=== PATIENT | male | born 1995 | race Caucasian/White ===

== ENCOUNTER 2018-10-20 09:46 | Emergency (ER) | payer SELFPAY ==
--- NOTE | 2018-10-20 09:54 | NUR.NOTE ---
for the past 2 weeks pt has been experiencing pain in his lower left ribs. pt states that the pain is 5/10 at worst and it interment some times not present for a whole day some times multiple days pt believes that the pain is brought about by spicy food. pt notes that once the pain is present
--- NOTE | 2018-10-20 09:56 | W.ED.GENAD ---
Discharge Plan Disposition Patient Disposition: HOME Condition: Good Discharge Details Chief Complaint: Abd Prob Clinical Impression: Gastritis Primary Care Provider: Cynthia Cordon ED Provider: Shila Biggs Home Meds and New Rx's Prescriptions: New omeprazole 40 mg capsule,delayed release(DR/EC) 40 mg PO DAILY Qty: 14 RF: 0 Continued cephalexin 500 MG capsule 500 mg PO QID 7 Days RF: 0 Discharge Instructions Instructions: Gastritis (ED) Additional Instructions: Encourage hydration. Try to avoid foods that cause increased pain. Follow up with your primary care physician next week for reevaluation. Even if symptoms are improving, take omeprazole as prescribed. If you develop fevers, chills, increased pain, are unable to stay hydrated or develop other new/worsening symptoms please seek care urgently once again. Referrals: Cynthia Cordon [Primary Care Provider] - Discharge Data Discharge Date/Time-TO BE ENTERED AT DEPARTURE: 10/20/18 11:55 Medical Decision Making <KAYLEIGH Lewis - Last Filed: 10/20/18 13:10> Patient is a 23 year old male, accompanied by father, with c/c of intermittent abdominal pain over the past 3 weeks. Reports that this comes on after eating. He had thought this was associated with spicy food but also sounds to be worse with fatty foods. He is currently asymptomatic but states that he had pain much longer than he had on previous episodes. States that he was ate kateryna salad for dinner last night and shortly afterward develops epigastric and LUQ pain. Dnies N/V/D. No fevers/chills. No change in appetite. No previous abdominal surgeries. States that when symptoms first began he used omeprazole, this was helpful with symptom management but he then stopped the medication and symptoms returned. On exam, patient has large benign abdomen. He is nontoxic, no current discomfort. Given locationi of pain and that this is worse after eating fatty foods, will obtain US of abdomen to evalaute for gallbladder pathology. Will obtain baseline labs. With ihs history, most consistent with GERD or ulcer. US reviewed by software test technician, no acute abnormality noted. Labs reviewed, reassuring for no acute/emergent abdominal process. No leukocytosis, no electrolyte abnormalities. Lipase WNL. Discussed this with the patient. He has been taking large amount of Ibuprofen, discussed that this maybe worsening his symptoms. Advised he stop this, will start on 40mg Omeprazole QD. Advised f/u with PCP. Patient has PCP but has not been seen for first appointment, have asked critical care nurse practitioner to help ensure prompt follow up for his abdominal pain. He was given strict return precautions. All questions and concerns were addressed, he is in agreement with this plan. <Farhan De La O DO - Last Filed: 12/16/18 15:09> EKG 11: 29 Rate 91, intervals normal, sinus rhythm, nonspecific T wave abnormality with inversions in lead III and aVF, Q waves in lead III and aVF. No significant ST elevations. No prior EKG for comparison. HPI <KAYLEIGH Lewis - Last Filed: 10/20/18 13:10> General Mode of arrival: ambulatory. Date/Time Provider Initiated Documentation: 10/20/18 09:55. Limitations to Documentation: no limitations. Information obtained by: patient, family (accompanied by father) and RN notes reviewed. History of Present Illness 23 year old M presents to the emergency department with the chief complaint of epigastric pain after eating, described as moderate, Quality is described as burning and aching, and is localized to the abdomen. Patient reports no radiation. Patient started experiencing this week(s) (3) and it has been intermittent and now resolved. Medication improves symptom(s), (omeprazole) Eating worsens symptoms . Patient notes denies chest pain, cough, diaphoresis, fever/chills, headaches, loss of appetite, nausea/vomiting, rash, shortness of breath and weakness. Patient did receive the following treatments prior to arrival, other (omeprazole) Related Data Home Medications Medication Instructions Recorded Confirmed cephalexin 500 mg PO QID 7 Days cap 11/29/17 omeprazole 40 mg PO DAILY #14 cap 10/20/18 Previous Rx's Medication Instructions Recorded cephalexin 500 mg PO QID 7 Days cap 11/29/17 omeprazole 40 mg PO DAILY #14 cap 10/20/18 Allergies Allergy/AdvReac Type Severity Reaction Status Date / Time No Known Allergies Allergy Unverified 11/29/17 13:44 Review of Systems <KAYLEIGH Lewis - Last Filed: 10/20/18 13:10> Constitutional Reports as per HPI, Denies chills, Denies fatigue, Denies fever(s) and Denies headache(s) ENT Denies headache(s) Cardiovascular Reports as per HPI, Denies chest pain and Denies dyspnea Respiratory Reports as per HPI, Denies cough and Denies dyspnea Gastrointestinal Reports as per HPI Genitourinary Denies system reviewed and no additional complaints, except as docu (patient denies any change in urinary habits), Denies scrotal swelling and Denies testicular pain Musculoskeletal Reports as per HPI and Denies back pain Integumentary/Breasts Reports as per HPI and Denies rash Neurologic Reports as per HPI and Denies headache(s) Endocrine Denies fatigue PFSH <KAYLEIGH Lewis - Last Filed: 10/20/18 13:10> Social History Smoking/Tobacco Use Status: Never Alcohol Intake: never Substance use type: does not use Do you feel safe at home: Yes Do you feel safe in your relationship?: Yes Exam <KAYLEIGH Lewis - Last Filed: 10/20/18 13:10> Const General: cooperative, healthy appearing, comfortable, no acute distress and well developed Nutritional Appearance: well nourished and overweight Orientation: alert and awake HENMT Head: normal to inspection Mouth: moist mucous membranes Resp Effort & Inspection: normal respiratory effort, able to speak in complete sentences and no respiratory distress Auscultation: clear to auscultation bilaterally, no rales, no rhonchi and no wheezes Cardio Rate: regular rate Rhythm: regular rhythm Heart Sounds: S1 normal and S2 normal GI Inspection: normal to inspection, no visible herniation and No visible peristalsis Palpation: soft, no hepatosplenomegaly, no aortic enlargement, not firm, no guarding, no hernias, no masses, not rigid, nontender and No ascites Percussion: normal to percussion Auscultation: normal bowel sounds Back/Spine/Pelvis Back: no CVA tenderness Skin General skin exam: no rashes or lesions noted Trauma: no lacerations or abrasions Neuro General: alert and awake Cognition: normal cognition Speech: speech normal Gait: normal gait Psych Appearance: grossly normal and well kempt Mental Status: mental status grossly normal Speech and Movement: speech and movement normal
[2018-10-20 09:58] VITALS: BP 125/60; PULSE 77; RESP 16; TEMP 36.8; O2SAT 98
--- NOTE | 2018-10-20 10:08 | DI.US_ITS ---
SYMPTOMS/DIAGNOSIS: EPIGASTRIC PAIN AFTER EATING FATTY FOODS, ? GB DISEASE ABDOMINAL ULTRASOUND: Routine examination was performed. The aorta and IVC are unremarkable. The liver is normal in size. No hepatic mass is seen. The gallbladder is negative. There is a negative sonographic Cordova's sign. No biliary ductal dilatation is present. The pancreas, spleen and kidneys are unremarkable. The left upper quadrant was evaluated sonographically and is unremarkable. IMPRESSION: Negative abdominal ultrasound. The findings were discussed with Shila Biggs of the emergency department on the date of the examination.
[2018-10-20 11:05] LABS: Abs Immature Grans 0.01 k/cumm (0.0-0.09); Absolute Basophil Count 0.01 k/cumm (0.0-0.2); Absolute Eosinophil Count 0.08 k/cumm (0.0-0.7); Absolute Lymphocyte Count 1.51 k/cumm (1.2-3.4); Absolute Monocyte Count 0.58 k/cumm (0.11-0.7); Absolute Neutrophil Count 3.37 k/cumm (1.2-6.7); Basophils % 0.2; Eosinophils % 1.4; HCT 45.1 % (40.0-50.0); HGB 15.5 g/dL (13.5-17.5); Immature Grans % 0.2; Lymphocytes % 27.2; Mean Corp. HGB Concentration 34.4 g/dL (32.0-36.0); Mean Corpuscular Hemoglobin 30.5 pg (27.0-33.0); Mean Corpuscular Volume 88.6 fL (80-95); Mean Platelet Volume 9.4 fL (8.0-11.0); Monocytes % 10.4; Neutrophils % 60.6; Platelet Count 260 x1000/uL (130-400); RBC 5.09 m/cumm (4.50-6.00); White Blood Cell Count 5.56 k/cumm (4.4-10.8)
[2018-10-20 11:26] LABS: ALT 36 U/L (12-78); AST 18 U/L (15-37); Albumin 4.1 g/dL (3.4-5.0); Alkaline Phosphatase 51 U/L (46-116); Anion Gap 9.2 mmol/L (3-11); BUN 14 mg/dL (7-18); Bilirubin, Total 0.5 mg/dL (0.2-1.0); CO2 26.8 mmol/L (21.0-32.0); CREATININE 1.07 mg/dL (0.70-1.30); Calcium 9.4 mg/dL (8.5-10.1); Chloride 102 mmol/L (98-107); Glucose 107 mg/dL (70-100); Lipase 130 U/L (73-393); Potassium 3.9 mmol/L (3.5-5.1); Sodium 138 mmol/L (136-145); Total Protein 7.8 g/dL (6.4-8.2)
[2018-10-20 11:31] LABS: Troponin I < 0.02 ng/mL (0.00-0.06)
[2018-10-20 17:51] VITALS: BP 125/60; PULSE 77; RESP 16; TEMP 36.8; O2SAT 98
--- NOTE | 2018-10-21 11:08 | CMPROGNOTE_ITS ---
Care Management Progress Note 10/21-Shila VICTOR requested assistance with a PCP ([facility]) f/u in two weeks for abd pain. Referral faxed to [facility].
== END 2018-10-20 11:55 | disposition home or self-care (01) ==
PROVIDERS: Emergency Provider Physician Assistant; PCP Nurse Practitioner Family
DX: K29.00 Acute gastritis without bleeding (principal); R10.13 Epigastric pain
CPT/HCPCS: 36415; 80053; 83690; 99284; 76700; 83735; 84484; 85025

== ENCOUNTER 2020-12-28 05:14 | Emergency (ER) | payer OTHER, SELFPAY ==
[2020-12-28 05:25] VITALS: BP 158/90; PULSE 91; RESP 18; TEMP 36.5; O2SAT 100
--- NOTE | 2020-12-28 05:28 | W.ED.GENAD ---
Discharge Plan Disposition Patient Disposition: HOME Condition: Stable Discharge Details Clinical Impression: Allergic reaction to bee sting Primary Care Provider: Cynthia Cordon ED Provider: Rody Carter Home Meds and New Rx's Prescriptions: New methylprednisolone [Medrol (Davian)] 4 mg tablets,dose pack See Rx Instructions .ROUTE .COMPLEX MDD see package instructions 6 Days Qty: 21 RF: 0 Continued omeprazole 40 mg capsule,delayed release(DR/EC) 40 mg PO DAILY Qty: 14 RF: 0 Discharge Instructions Instructions: Insect Bite or Sting (ED), General Allergic Reaction (ED) Additional Instructions: Apply ice to the affected area several times daily for 20 minutes at a time. Alternate tylenol and motrin as needed and directed for pain. You can take nonsedating antihistamine such as Amaya, Zyrtec or Claritin for itching during the day as needed. You can take Benadryl as needed and directed at night for itching. Your prescription has been sent electronically to your pharmacy. Call the pharmacy to make sure your prescription is ready before pickup. Take the prescription as directed. Follow-up with your primary care doctor in 1 week. Return to the emergency department with any worsening or new concerning symptoms. Discharge Data Discharge Date/Time-TO BE ENTERED AT DEPARTURE: 12/28/20 06:02 Discharge Physician: Rody Carter Medical Decision Making 25-year-old male presents with left arm redness and swelling status post a bee sting to L forearm yesterday. The left forearm and hand note moderate edema and mild erythema. There is no cellulitis, induration, rash or abscess noted. He is neurovascular intact with normal capillary refill. Compartments soft. Suspect most likely a local reaction to a bee sting that has now progressed into a moderate inflammatory reaction. As he has had no relief with Benadryl, will prescribe a short course of steroids. He was given 1 oral dose here and prescription sent electronically to his pharmacy. Do not feel indication for antibiotics at this time. Patient is advised that he can alternate ice and take antihistamines as needed. He was given usual return precautions and advised to look out for signs of infection such as fever, worsening redness or swelling. Medical Records Medical records reviewed: Yes I reviewed the patient's medical records. HPI General Mode of arrival: ambulatory. Date/Time Provider Initiated Documentation: 12/28/20 05:14. Limitations to Documentation: no limitations. Information obtained by: patient. HPI Narrative: Patient is a 25-year-old male who presents with left arm and hand swelling after a bee sting yesterday. Patient states he was stung by a yellow jacket yesterday on his left forearm. He states he had initial swelling which he states has now progressed to worsening swelling and discomfort in his left forearm and hand. He states he has taken Benadryl without relief. He denies any fever. Related Data Home Medications Medication Instructions Recorded Confirmed omeprazole 40 mg PO DAILY #14 cap 10/20/18 12/28/20 methylprednisolone [Medrol (Davian)] See Rx Instructions .ROUTE 12/28/20 .COMPLEX 6 Days #21 dose pk MDD see package instructions Previous Rx's Medication Instructions Recorded omeprazole 40 mg PO DAILY #14 cap 10/20/18 methylprednisolone [Medrol (Davian)] See Rx Instructions .ROUTE 12/28/20 .COMPLEX 6 Days #21 dose pk MDD see package instructions Allergies Allergy/AdvReac Type Severity Reaction Status Date / Time No Known Allergies Allergy Unverified 11/29/17 13:44 General Stated Complaint: RashLesion ANGELINA: 4 Review of Systems All systems reviewed & are unremarkable except as noted in HPI and below Constitutional Constitutional: Reports as per HPI, Denies chills and Denies fever(s) Eyes Eyes: Denies blurry vision ENT Ears, Nose, Mouth, and Throat: Denies dizziness, Denies sore throat and Denies throat swelling Cardiovascular Cardiovascular: Denies chest pain and Denies dyspnea Respiratory Respiratory: Denies cough and Denies dyspnea Gastrointestinal Gastrointestinal: Denies abdominal pain, Denies diarrhea and Denies vomiting Genitourinary Genitourinary: Denies hematuria and Denies dysuria Musculoskeletal Musculoskeletal: Denies back pain, Denies numbness and Reports other (Left forearm and hand swelling and redness) Integumentary/Breasts Skin/Breast: Denies lesions and Denies rash Neurologic Neurologic: Denies dizziness, Denies localized weakness and Denies numbness Allergic/Immunologic Allergic/Immunologic: Denies throat swelling [facility] Medical History (Updated 12/30/20 @ 11:21 by Rody Carter DO) No significant past medical history Surgical History (Updated 12/30/20 @ 11:21 by Rody J Bugbee, DO) No significant past surgical history Social History Smoking/Tobacco Use Status: Never Smoking risk assessment performed?: Yes Alcohol Intake: never Substance use type: does not use Do you feel safe at home: Yes Do you feel safe in your relationship?: Yes Exam Const General: cooperative, healthy appearing and no acute distress HENMT Head: normal to inspection Mouth: oral mucosae normal Eyes General: appearance normal, both eyes and all related structures Neck Neck: normal visual inspection Resp Effort & Inspection: normal respiratory effort and able to speak in complete sentences Cardio Rate: regular rate Skin General skin exam: no rashes or lesions noted Neuro General: patient alert, patient awake and patient oriented x3 Motor: muscle tone normal throughout Extrem General: full ROM and capillary refill normal Elbow/forearm/wrist images: 1. Moderate edema and mild erythema extending from left hand up left forearm. Majority of swelling is in the distal left upper extremity near hand and wrist. There is no crepitus and compartments are soft. No ecchymosis, lesions, rash, bleeding or open wounds. Other: Left radial and ulnar pulses intact. Motor/sensory grossly intact left upper extremity. Psych Appearance: grossly normal Affect: normal affect Course Vital Signs Vital signs: Vital Signs Temperature 97.7 F 12/28/20 05:25 Pulse 91 H 12/28/20 05:25 Respiratory Rate 18 12/28/20 05:25 Blood Pressure 158/90 H 12/28/20 05:25 Pulse Oximetry 100 12/28/20 05:25 Temperature 97.7 F 12/28/20 05:25 Temperature Source Temporal Artery Scan 12/28/20 05:25 Pulse 91 H 12/28/20 05:25 Respiratory Rate 18 12/28/20 05:25 Blood Pressure 158/90 H 12/28/20 05:25 Blood Pressure Position Sitting 12/28/20 05:25 Pulse Oximetry 100 12/28/20 05:25 Oxygen Delivery Method Room Air 12/28/20 05:25 Oxygen Flow Rate 0 12/28/20 05:25 Pain Level 1 12/28/20 05:25
[2020-12-28] MEDS: predniSONE 20 MG TAB 40 MG PO (05:48)
== END 2020-12-28 06:02 | disposition home or self-care (01) ==
PROVIDERS: Emergency Provider Physician Assistant; PCP Nurse Practitioner Family
DX: T78.3XXA Angioneurotic edema, initial encounter; L53.8 Other specified erythematous conditions; T63.451A Toxic effect of venom of hornets, accidental (unintentional), initial encounter
CPT/HCPCS: 99283; J7512

== ENCOUNTER 2021-02-08 16:19 | Emergency (ER) | payer OTHER, SELFPAY ==
[2021-02-08 16:21] VITALS: BP 152/76; PULSE 90; RESP 16; TEMP 37.2; O2SAT 100
--- NOTE | 2021-02-08 16:43 | W.ED.GENAD ---
Discharge Plan Disposition Patient Disposition: HOME Condition: Stable Discharge Details Clinical Impression: Bites and stings, insect Primary Care Provider: Cynthia Cordon ED Provider: Tam Rojas Home Meds and New Rx's Prescriptions: Continued omeprazole 40 mg capsule,delayed release(DR/EC) 40 mg PO DAILY Qty: 14 RF: 0 Discharge Instructions Additional Instructions: there is no concern at this time for a significant allergic reaction requiring intervention you can try taking zantac daily, follow dosing instructions on packaging you can take 25-50mg benadryl every 4-6 hours as needed if you feel more ill, have difficulty breathing or swallowing return to the emergency department Medical Decision Making 25 yo male comes in after he was stung by an unknown insect, though he thinks it was a bee, while in a car just within the last hour. HAs a small 2cm area of erythema and swelling on left lower neck, no other swelling, no difficulty breathing or swallowing. He has never had anaphylaxis to stings in the past, never has needed epi per patient. No gi or respiratory symptoms. He has no findings on exam to suggest anaphylaxis and has no significant swelling to make airway compromise a concern. Offered him prednisone but he declined, he will take h2 blockers and prn benadryl, return precautions given Differential Diagnosis Differential Diagnosis: bee sting, local reaction HPI General Mode of arrival: ambulatory. Date/Time Provider Initiated Documentation: 02/08/21 16:19. Limitations to Documentation: no limitations. Information obtained by: patient. History of Present Illness 25 year old M presents to the emergency department with the chief complaint of stung on neck, described as mild, Quality is described as aching, and is localized to the neck. Patient reports no radiation. Patient started experiencing this hour(s) (1) and it has been constant. No relieving factors improve symptom(s), No exacerbating factors reported . Patient notes no other symptoms.. Patient did receive the following treatments prior to arrival, none Related Data Home Medications Medication Instructions Recorded Confirmed omeprazole 40 mg PO DAILY #14 cap 10/20/18 02/08/21 Previous Rx's Medication Instructions Recorded omeprazole 40 mg PO DAILY #14 cap 10/20/18 Allergies Allergy/AdvReac Type Severity Reaction Status Date / Time No Known Allergies Allergy Unverified 02/08/21 16:27 General Stated Complaint: Allergic ANGELINA: 3 Review of Systems All systems reviewed & are unremarkable except as noted in HPI and below Constitutional Constitutional: Denies chills, Denies fever(s) and Denies weakness Cardiovascular Cardiovascular: Denies chest pain and Denies dyspnea Respiratory Respiratory: Denies cough and Denies dyspnea Gastrointestinal Gastrointestinal: Denies abdominal pain, Denies nausea and Denies vomiting Musculoskeletal Musculoskeletal: Denies joint swelling Neurologic Neurologic: Denies weakness [facility] Medical History (Updated 02/08/21 @ 16:48 by Tam Rojas MD) No significant past medical history Surgical History (Updated 12/30/20 @ 11:21 by Rody Carter DO) No significant past surgical history Social History Smoking/Tobacco Use Status: Former Tobacco Use Smoking risk assessment performed?: Yes Alcohol Intake: current Alcohol Intake frequency: holidays/special occasions only Drug use: Never Substance use type: does not use Do you feel safe at home: Yes Do you feel safe in your relationship?: Yes Exam Const General: no acute distress Orientation: alert HENMT Head: normal to inspection Ears: external ears normal General nose exam: external nose normal Mouth: moist mucous membranes Eyes General: appearance normal, both eyes and all related structures Neck Neck: full ROM, no meningeal signs and no JVD Resp Effort & Inspection: normal respiratory effort and able to speak in complete sentences Cardio Rate: regular rate Skin General skin exam: elasticity normal Neuro General: patient alert and patient oriented x3 Extrem General: normal to inspection Psych Mental Status: mental status grossly normal Course Vital Signs Vital signs: Vital Signs Temperature 37.2 C 02/08/21 16:21 Pulse 90 02/08/21 16:21 Respiratory Rate 16 02/08/21 16:21 Blood Pressure 152/76 H 02/08/21 16:21 Pulse Oximetry 100 02/08/21 16:21 Temperature 37.2 C 02/08/21 16:21 Temperature Source Skin 02/08/21 16:21 Pulse 90 02/08/21 16:21 Respiratory Rate 16 02/08/21 16:21 Respiratory Effort 02/08/21 16:25 Blood Pressure 152/76 H 02/08/21 16:21 Blood Pressure Position Sitting 02/08/21 16:21 Pulse Oximetry 100 02/08/21 16:21 Oxygen Delivery Method Room Air 02/08/21 16:21 Oxygen Flow Rate 0 02/08/21 16:21
== END 2021-02-08 17:05 | disposition home or self-care (01) ==
PROVIDERS: Emergency Provider Emergency Medicine; PCP Nurse Practitioner Family
DX: T63.441A Toxic effect of venom of bees, accidental (unintentional), initial encounter (principal); L53.0 Toxic erythema
CPT/HCPCS: 99281; 99282

== ENCOUNTER 2021-10-16 21:05 | Emergency (ER) | payer OTHER, SELFPAY ==
[2021-10-16 21:13] VITALS: BP 144/76; PULSE 80; RESP 18; TEMP 36.2; O2SAT 99
--- NOTE | 2021-10-16 22:17 | W.ED.GENAD ---
Discharge Plan Disposition Patient Disposition: HOME Condition: Stable Discharge Details Clinical Impression: Light-headed feeling, Chemical exposure Primary Care Provider: Cynthia Cordon ED Provider: Elena Seymour Home Meds and New Rx's Prescriptions: Continued omeprazole 40 mg capsule,delayed release(DR/EC) 40 mg PO DAILY Qty: 14 0RF Discharge Instructions Additional Instructions: He had adequate ventilation, refrain from using bleach for the next several days Regular food and fluids Establish care with PCP Return earlier should you have new or worsening complaints including return of symptoms Your blood sugar was 97, this is an appropriate blood sugar for you Referrals: Shaheen Castrejon MD [ [facility] STAFF PHYSICIAN] - Discharge Data Discharge Date/Time-TO BE ENTERED AT DEPARTURE: 10/16/21 22:24 Medical Decision Making Patient is completely asymptomatic at time of reassessment, he suspects over the combination of his anxiety and inhaling bleach for an extended period of time He is fully alert and oriented, ambulatory with steady gait and I see no need for additional intervention at this time His exam is benign, his vitals are stable Discharged home in stable condition with stable vitals, we did talk about using chemicals and well ventilated area in the future Medical Records Medical records reviewed: Yes I reviewed the patient's medical records. Lab Data Lab results reviewed: Yes I reviewed the patient's lab results. HPI General Date/Time Provider Initiated Documentation: 10/16/21 21:08. HPI Narrative: this 26-year-old gentleman who is otherwise healthy presents with report of lightheadedness. He states he was cleaning with bleach with a little ventilation and began to feel lightheaded. He states he went outside and felt improvement. He denies any chest pain, shortness of breath, wheezing, sore throat, nausea, vomiting. He is completely asymptomatic at this time. He was using Clorox bleach spray only. This is for approximately 2 hours. Related Data Home Medications Medication Instructions Recorded Confirmed omeprazole 40 mg capsule,delayed 40 mg PO DAILY #14 caps 10/20/18 02/08/21 release Previous Rx's Medication Instructions Recorded omeprazole 40 mg capsule,delayed 40 mg PO DAILY #14 caps 10/20/18 release Allergies Allergy/AdvReac Type Severity Reaction Status Date / Time No Known Allergies Allergy Unverified 02/08/21 16:27 General Stated Complaint: GenMedical ANGELINA: 3 Review of Systems All systems reviewed & are unremarkable except as noted in HPI and below PFSH All Active Problems (Updated 10/16/21 @ 22:22 by KAYLEIGH Barone) Bites and stings, insect (Acute) Light-headed feeling (Acute) Chemical exposure (Acute) Allergic reaction to bee sting (Acute) Medical History (Updated 10/16/21 @ 22:22 by KAYLEIGH Barone) No significant past medical history Surgical History (Updated 12/30/20 @ 11:21 by Rody Carter DO) No significant past surgical history Social History Smoking/Tobacco Use Status: Current every day Tobacco Type: smokeless tobacco Smoking risk assessment performed?: Yes Alcohol Intake: current Alcohol Intake frequency: a few times a month Drug use: Never Substance use type: does not use Do you feel safe at home: Yes Do you feel safe in your relationship?: Yes Exam Const General: cooperative, comfortable and no acute distress Orientation: alert and oriented x3 HENMT Head: normal to inspection Other: Uvula midline, no obvious erythema or edema Resp Effort & Inspection: normal respiratory effort Auscultation: clear to auscultation bilaterally Cardio Rate: regular rate Rhythm: regular rhythm GI Inspection: normal to inspection Skin General skin exam: no rashes or lesions noted Neuro General: patient alert and patient oriented x3 Course Vital Signs Vital signs: Vital Signs Temperature 36.2 C L 10/16/21 21:13 Pulse 80 10/16/21 21:13 Respiratory Rate 18 10/16/21 21:13 Blood Pressure 144/76 H 10/16/21 21:13 Pulse Oximetry 99 10/16/21 21:13 Temperature 36.2 C L 10/16/21 21:13 Temperature Source Temporal Artery Scan 10/16/21 21:13 Pulse 80 10/16/21 21:13 Respiratory Rate 18 10/16/21 21:13 Respiratory Effort Non-Labored 10/16/21 21:17 Blood Pressure 144/76 H 10/16/21 21:13 Blood Pressure Position Sitting 10/16/21 21:13 Pulse Oximetry 99 10/16/21 21:13 Oxygen Delivery Method Room Air 10/16/21 21:13 Oxygen Flow Rate 0 10/16/21 21:13
[2021-10-16 22:28] VITALS: BP 142/80; PULSE 75; RESP 18; TEMP 37; O2SAT 99
== END 2021-10-16 22:24 | disposition home or self-care (01) ==
PROVIDERS: Emergency Provider Physician Assistant; PCP Nurse Practitioner Family
DX: R42 Dizziness and giddiness (principal); Z77.098 Contact with and (suspected) exposure to other hazardous, chiefly nonmedicinal, chemicals
CPT/HCPCS: 36416; 82947; 82962; 99282

== ENCOUNTER 2021-12-19 12:31 | Emergency (ER) | payer OTHER, SELFPAY ==
--- OUTSIDE RECORDS SUMMARY | 2021-12-19 12:36 | XMS_ITS | Encounter Summary ---
:1995 Author Organization [facility] [place] [address] Care Team Providers Name Role Phone None Primary Care Provider Unavailable Reason for Visit Reason Comments Anxiety Encounter Details Date Type Department Care Team Description 12/30/2020 Emergency Emergency Department at [address] [id number] Social History Tobacco Use Types Packs/Day Years Used Date Never Smoker Smokeless Tobacco: Current User Chew Alcohol Use Standard Drinks/Week Comments Yes 0 (1 standard drink = 0.6 oz pure alcoho l) Sex Assigned at Date Recorded Not on file documented as of this encounter Last Filed Vital Signs Vital Sign Reading Time Taken Comments Blood Pressure 149/87 12/30/2020 6:54 PM EDT Pulse 91 12/30/2020 6:54 PM EDT Temperature 36.9 ??C (98.4 ??F) 12/30/2020 6:54 PM EDT Respiratory Rate 16 12/30/2020 6:54 PM EDT Oxygen Saturation 98% 12/30/2020 6:54 PM EDT Inhaled Oxygen Concentration - - Weight 131.5 kg (290 lb) 12/30/2020 6:54 PM EDT Height 188 cm (6' 2) 12/30/2020 6:54 PM EDT Body Mass Index 37.23 12/30/2020 6:54 PM EDT documented in this encounter ED Notes Christina Mckeon APRN - 12/30/2020 8:28 PM EDT Patient Name: Sanjeev Valiente Patient Age: 25 y.o. Birthdate: 1995 Admit date: 12/30/2020 Attending Physician: No att. providers found I signed up to see this patient but I am told by the triage nurse that he decided to leave after triage without being seen because he was feeling so much better. He left from the ER with his significant other. No orders to display Christina Mckeon APRN 12/31/20 0112 Jaqueline Welsh RN - 12/30/2020 8:27 PM EDT Patient up to this signwriter to report that he is leaving. States I feel better. Im 99% sure I had an anxiety attack. Patient leaving with significant other, states there are 2 other hospitals between here and home if I don't feel right. documented in this encounter Plan of Treatment Not on filedocumented as of this encounter Visit Diagnoses Not on filedocumented in this encounter Care Teams Bottom Bleacher Relationship Specialty Start Date End Date None PCP - General 12/24/20 None documented as of this encounter
--- OUTSIDE RECORDS SUMMARY | 2021-12-19 12:36 | XMS_ITS | Clinical Summary ---
:1995 Author Organization [facility] [place] [address] Care Team Providers Name Role Phone None Primary Care Provider Unavailable Allergies No known active allergies Social History Tobacco Use Types Packs/Day Years Used Date Never Smoker Smokeless Tobacco: Current User Chew Alcohol Use Standard Drinks/Week Comments Yes 0 (1 standard drink = 0.6 oz pure alcoho l) Sex Assigned at Date Recorded Not on file Last Filed Vital Signs Vital Sign Reading [...] Mass Index 37.23 12/30/2020 6:54 PM EDT Plan of Treatment Health Maintenance Due Date Last Done Comments Covid-19 Vaccine (#1) 08/24/2000 HPV vaccine (1 - Male 2-dose series) 08/24/2006 HIV screen 08/24/2013 Hepatitis C Screening 08/24/2013 Lipid Screening 08/24/2013 Tdap adult 08/24/2014 Tetanus vaccine 08/24/2014 Influenza (Flu) vaccine (1 of 1 - Influenza standard 01/24/2022 series) Insurance Payer Benefit Plan / Subscriber ID Effective Dates Phone Addre ss Type Group MVP MVP [place] [id number] 2020-Present [phone] [address] [place] [address] Care Teams Salesperson [employer] Relationship Specialty Start Date End Date None PCP - General 12/24/20 None
[2021-12-19 12:46] VITALS: BP 157/97; PULSE 86; RESP 17; TEMP 37.4; O2SAT 97
[2021-12-19 12:50] VITALS: RESP 17
--- NOTE | 2021-12-19 14:40 | ED.GENADUL_ITS ---
Discharge Plan Disposition Patient Disposition: HOME Condition: Stable Discharge Details Clinical Impression: Xerostomia Primary Care Provider: Shaheen Castrejon ED Provider: Isidro Burnette Home Meds and New Rx's Prescriptions: Continued citalopram 20 mg tablet 1 tab PO DAILY Label Comments: TAKE 1 TABLET BY MOUTH EVERY DAY Discharge Instructions Additional Instructions: Your symptoms are likely caused by the new medication. At this time it sounds as though you would like to continue taking the medication to see if it helps you with your anxiety but if symptoms were to persist we would talk with your primary care provider about discontinuing this medication potentially trying another. Please watch for new or worsening symptoms and return to the ER for any concerns. Lastly, I would like you to attempt to be seen sooner than January 04 as already scheduled. Discharge Data Discharge Date/Time-TO BE ENTERED AT DEPARTURE: 12/19/21 14:52 Medical Decision Making This is a 26-year-old gentleman who was placed on citalopram almost 2 weeks ago by his PCP for ongoing anxiety, has since developed a dry mouth. Patient feels as though it is worth continuing the medication but wonders if there is anything he can do in the meantime. He denies any depression or SI. We discussed attempting to use lemon drops which may help increase saliva production. Discussed adequate hydration. Patient appears well, nontoxic, airway is intact. He speaks in full sentences and has no difficulty managing his secretions. Symptoms began shortly after taking this medication, certainly appears to be a [id number]-zug-[id number] relationship. He plans to continue the medication and follow- up with his PCP as scheduled, if symptoms persist that long then he may discuss other options to treat his anxiety. Standard discharge and return precautions were provided. Patient understands, is agreeable to this plan, and has no additional questions or concerns upon discharge. This documentation was generated using Logisticareation system, please disregard any oddities of phrase or misspellings. Medical Records Medical records reviewed: Yes I reviewed the patient's medical records. HPI General Mode of arrival: ambulatory . Date/Time Provider Initiated Documentation: 12/19/21 12:51 . Limitations to Documentation: no limitations . Information obtained by: patient . HPI Narrative: This is a 26-year-old gentleman presented to the ER reporting a dry mouth ever since starting taking his citalopram almost 2 weeks ago. He states that he contacted his primary care provider to make them aware, recommended to continue taking medication, plenty of hydration, and he has follow-up with him in the next month. Patient presents to the ER today just questioning if there is anything else that he can do for his dry mouth. He denies any other symptoms at this time. Denies recent illness or trauma. Reports that he feels as though taking the medication for his anxiety is more important than discontinuing medi cation in order to treat his dry mouth. Related Data Home Medications Medication Instructions Recorded Confirmed citalopram 20 mg tablet 1 tab PO DAILY 12/19/21 12/19/21 Allergies Allergy/AdvReac Type Severity Reaction Status Date / Time No Known Allergies Allergy Unverified 12/19/21 12:54 General Stated Complaint: Anxiety ANGELINA: 4 Review of Systems Constitutional Constitutional: Denies fever(s) ENT Ears, Nose, Mouth, and Throat: Denies mouth pain and Denies sore throat Cardiovascular Cardiovascular: Denies chest pain and Denies dyspnea Respiratory Respiratory: Denies cough and Denies dyspnea Gastrointestinal Gastrointestinal: Denies abdominal pain, Denies nausea and Denies vomiting Integumentary/Breasts Skin/Breast: Denies rash Psychiatric Psychiatric: Reports anxiety PFSH All Active Problems Bites and stings, insect (Acute) Xerostomia (Acute) Allergic reaction to bee sting (Acute) Medical History No significant past medical history Surgical History No significant past surgical history Social History Smoking/Tobacco Use Status: Current every day Tobacco Type: smokeless tobacco Smoking risk assessment performed?: Yes Alcohol Intake: current Alcohol Intake frequency: a few times a month Drug use: Never Substance use type: does not use Do you feel safe at home: Yes Do you feel safe in your relationship?: Yes Exam Const General: cooperative, healthy appearing, comfortable and no acute distress Orientation: alert, awake and oriented x3 HENMT Head: normal to inspection, normocephalic and atraumatic Face and sinus: normal facial exam Mouth: moist mucous membranes abnormal (Slightly dry) Throat: posterior oropharynx normal Eyes General: appearance normal, both eyes and all related structures Conjunctivae: conjunctivae normal Neck Neck: normal visual inspection, full ROM, no lymphadenopathy, no meningeal signs, trachea midline, supple and nontender Resp Effort & Inspection: normal respiratory effort and able to speak in complete sentences Auscultation: clear to auscultation bilaterally Cardio Rate: regular rate Rhythm: regular rhythm Skin General skin exam: no rashes or lesions noted Neuro General: patient alert, patient awake, moves all extremities and no focal motor deficits Sensory Exam: no sensory deficits noted Psych Appearance: grossly normal Mental Status: mental status grossly normal Course Vital Signs Vital signs: Vital Signs Temperature 37.4 C 12/19/21 12:46 Pulse 86 12/19/21 12:46 Respiratory Rate 17 12/19/21 12:46 Blood Pressure 157/97 H 12/19/21 12:46 Pulse Oximetry 97 12/19/21 12:46 Temperature 37.4 C 12/19/21 12:46 Temperature Source Temporal Artery Scan 12/19/21 12:46 Pulse 86 12/19/21 12:46 Respiratory Rate 17 12/19/21 12:50 Respiratory Effort Non-Labored 12/19/21 12:50 Respiratory Depth Normal 12/19/21 12:50 Respiratory Pattern Normal 12/19/21 12:50 Blood Pressure 157/97 H 12/19/21 12:46 Blood Pressure Position Sitting 12/19/21 12:46 Pulse Oximetry 97 12/19/21 12:46 Oxygen Delivery Method Room Air 12/19/21 12:46 Oxygen Flow Rate 0 12/19/21 12:46 Pain Level 0 12/19/21 12:46 PAWSS Have you Been Recently Intoxicated or Drunk Within the Last 30 days?: No Have you Ever Experienced Previous Episodes of Alcohol Withdrawal?: No Have you ever Experienced Withdrawal Seizures?: No Have you ever Experienced Delirium Tremens(DT)s?: No Have you ever undergone Alcohol Rehabilitation Treatment (i.e, inpt ot outpatient treatment programs)?: No Have you ever Experienced Blackouts?: No Have you ever Combined Alcohol with other Downers within the last 90 days?: No Have you ever Combined Alcohol with any other Substance of Abuse during the last 90 days?: No Result: 0
== END 2021-12-19 14:52 | disposition home or self-care (01) ==
PROVIDERS: Emergency Provider Physician Assistant; PCP Family Medicine
DX: K11.7 Disturbances of salivary secretion (principal); T43.225A Adverse effect of selective serotonin reuptake inhibitors, initial encounter; F17.290 Nicotine dependence, other tobacco product, uncomplicated
CPT/HCPCS: 99281; 99282

== ENCOUNTER 2021-12-25 12:34 | Emergency (ER) | payer OTHER, SELFPAY ==
[2021-12-25 12:43] VITALS: BP 155/81; PULSE 97; RESP 16; TEMP 36.6; O2SAT 99
--- NOTE | 2021-12-25 13:30 | DI.RAD_ITS ---
Exam(s) XR ANKLE LT COMPLETE EXAM: XR ANKLE LT COMPLETE CLINICAL HISTORY: crush injury TECHNIQUE: 2D digital imaging was performed of the left ankle. Four images were obtained. AP, late ral and oblique views were obtained. COMPARISON: No exams were available for comparison FINDINGS: BONES: There is an acute nondisplaced fracture of the distal aspect of the left fibula. The fracture appears to lie below the level of the ankle mortise. There is an oblique fracture through the media l malleolus which extends into the ankle mortise. No bony destructive lesion is seen. JOINTS:The ankle mortise is normally aligned. SOFT TISSUE: Soft tissue swelling is present. IMPRESSION: Nondisplaced medial and lateral malleolar fractures as described with associated soft tissue swelling . DATA REPOSITORY: RADIATION DOSE DELIVERED:
--- NOTE | 2021-12-25 14:01 | PDOC.ERCMPRO ---
- If Service Date Differs Date of service: 12/25/21 Time of Service: 14:01 Care Management Progress Note YSBIRT screen: positive for nicotine Alcohol (AUDIT 10) brief intervention. Low risk guidelines discussed. 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 Resources for nicotine were discussed as well.
--- NOTE | 2021-12-25 14:47 | W.ED.GENAD ---
Discharge Plan Disposition Patient Disposition: HOME Condition: Stable Discharge Details Clinical Impression: Bimalleolar avulsion fracture of left ankle Primary Care Provider: Shaheen Castrejon ED Provider: Isidro Burnette Home Meds and New Rx's Prescriptions: Continued citalopram 20 mg tablet 1 tab PO DAILY Label Comments: TAKE 1 TABLET BY MOUTH EVERY DAY Discharge Instructions Instructions: Ankle Fracture (ED) Additional Instructions: Wear splint, do not remove, this is nonweightbearing. Use crutches as directed. Rest, elevate, cool compresses every 2 hours for 20 minutes. Please watch for new or worsening symptoms and return to the ER for any concerns. Please contact the office of Dr. Angeles tomorrow to discuss your ER visit and need for outpatient reevaluation. [id number] Tylenol and/or Motrin as directed for discomfort. Referrals: Jet Angeles MD [ [facility] STAFF PHYSICIAN] - Medical Decision Making 26-year-old gentleman presents for a left ankle injury that he sustained yesterday when he crushed his ankle between a trailer hitch and a camper. Reports only mild discomfort. Denies any other injury, numbness, tingling, weakness. Plan is to obtain x-ray and reassess X-ray reveals a nondisplaced medial and lateral malleoli fracture. Case discussed with Dr. Angeles who recommends a posterior splint, crutches, nonweightbearing and he will follow the patient in his clinic. Patient placed on the orthopedic list. Splinted without difficulty. Neuro, vascular, tendon intact status post splint application as examined by me. Patient reports only mild pain, does not require a prescription for analgesia Standard discharge and return precautions were provided. Patient understands, is agreeable to this plan, and has no additional questions or concerns upon discharge. This documentation was generated using croboation system, please disregard any oddities of phrase or misspellings. Medical Records Medical records reviewed: Yes I reviewed the patient's medical records. Imaging Data Radiologic Study: Attestation: I personally reviewed and interpreted this imaging study as follows: Imaging: X-Ray Radiologist's impression: Exam(s) XR ANKLE LT COMPLETE EXAM: XR ANKLE LT COMPLETE CLINICAL HISTORY: crush injury TECHNIQUE: 2D digital imaging was performed of the left ankle. Four images were obtained. AP, lateral and oblique views were obtained. COMPARISON: No exams were available for comparison FINDINGS: BONES: There is an acute nondisplaced fracture of the distal aspect of the left fibula. The fracture appears to lie below the level of the ankle mortise. There is an oblique fracture through the medial malleolus which extends into the ankle mortise. No bony destructive lesion is seen. JOINTS:The ankle mortise is normally aligned. SOFT TISSUE: Soft tissue swelling is present. IMPRESSION: Nondisplaced medial and lateral malleolar fractures as described with associated soft tissue swelling. HPI General Mode of arrival: wheelchair. Date/Time Provider Initiated Documentation: 12/25/21 13:16. Limitations to Documentation: no limitations. Information obtained by: patient. History of Present Illness 26 year old M presents to the emergency department with the chief complaint of L ankle crush injury, described as mild, with intensity rated at 2. Quality is described as aching, and is localized to the left and lower extremity. Patient reports no radiation. Patient started experiencing this day(s) (1) and it has been constant. Immobilization improves symptom(s), Movement worsens symptoms . Patient notes no other symptoms.. Patient did receive the following treatments prior to arrival, none Related Data Home Medications Medication Instructions Recorded Confirmed citalopram 20 mg tablet 1 tab PO DAILY 12/19/21 12/25/21 Allergies Allergy/AdvReac Type Severity Reaction Status Date / Time No Known Allergies Allergy Unverified 12/25/21 12:46 General Stated Complaint: Orthopedic ANGELINA: 4 Review of Systems Constitutional Constitutional: Denies weakness Musculoskeletal Musculoskeletal: Reports arthralgias, Denies numbness, Reports stiffness and Denies tingling Integumentary/Breasts Skin/Breast: Denies rash Neurologic Neurologic: Denies numbness, Denies tingling and Denies weakness PFSH All Active Problems Bites and stings, insect (Acute) Xerostomia (Acute) Bimalleolar avulsion fracture of left ankle (Acute) Allergic reaction to bee sting (Acute) Medical History No significant past medical history Surgical History No significant past surgical history Social History Smoking/Tobacco Use Status: Current every day Tobacco Type: smokeless tobacco Smoking risk assessment performed?: Yes Alcohol Intake: current Alcohol Intake frequency: a few times a month Drug use: Never Substance use type: does not use Do you feel safe at home: Yes Do you feel safe in your relationship?: Yes Exam Const General: cooperative, healthy appearing, comfortable and no acute distress Orientation: alert and awake [facility] Head: normal to inspection, normocephalic and atraumatic Eyes Conjunctivae: conjunctivae normal Neck Neck: normal visual inspection, full ROM, trachea midline and supple Resp Effort & Inspection: normal respiratory effort and able to speak in complete sentences Cardio Rate: regular rate Rhythm: regular rhythm Skin General skin exam: no rashes or lesions noted Neuro General: patient alert, patient awake, moves all extremities and no focal motor deficits Cognition: normal cognition Speech: speech normal Gait: antalgic Motor: muscle tone normal throughout Sensory Exam: no sensory deficits noted Extrem General: full ROM and capillary refill normal Other: Left ankle with diffuse swelling, ecchymosis, and tenderness. Neuro, vascular, tendon intact. Skin is intact. Normal capillary refill and dorsalis pedal pulse. Full range of motion Psych Appearance: grossly normal Mental Status: mental status grossly normal Course Vital Signs Vital signs: Vital Signs Temperature 36.6 C 12/25/21 12:43 Pulse 97 H 12/25/21 12:43 Respiratory Rate 16 12/25/21 12:43 Blood Pressure 155/81 H 12/25/21 12:43 Pulse Oximetry 99 12/25/21 12:43 Temperature 36.6 C 12/25/21 12:43 Temperature Source Temporal Artery Scan 12/25/21 12:43 Pulse 97 H 12/25/21 12:43 Respiratory Rate 16 12/25/21 12:43 Respiratory Effort Non-Labored 12/25/21 12:46 Blood Pressure 155/81 H 12/25/21 12:43 Blood Pressure Position Sitting 12/25/21 12:43 Pulse Oximetry 99 12/25/21 12:43 Oxygen Delivery Method Room Air 12/25/21 12:43 Oxygen Flow Rate 0 12/25/21 12:43 Pain Level 0 12/25/21 12:43 Procedures Orthopedic Splinting/Casting Injury #1: Side: left Lower Extremity Injury Location: ankle Lower Extremity Immobilizer: posterior splint Other Orthopedic Equipment: crutches PAWSS Have you Been Recently Intoxicated or Drunk Within the Last 30 days?: No Have you Ever Experienced Previous Episodes of Alcohol Withdrawal?: No Have you ever Experienced Withdrawal Seizures?: No Have you ever Experienced Delirium Tremens(DT)s?: No Have you ever undergone Alcohol Rehabilitation Treatment (i.e, inpt ot outpatient treatment programs)?: No Have you ever Experienced Blackouts?: No Have you ever Combined Alcohol with other Downers within the last 90 days?: No Have you ever Combined Alcohol with any other Substance of Abuse during the last 90 days?: No Positive Blood Alcohol level on Presentation? [PCS.BAL]: No Evidence of Increased Autonomic Activity (i.e. HR>120, tremor, sweating, agitation, nausea)?: No Result: 0
--- NOTE | 2021-12-25 16:44 | NUR.NOTE ---
Adelso Burnette requesting orthopaedic consult re: left ankle fx posterior left ankle splint placed, patient is NWB w/crutches , consult request faxed. MENG
== END 2021-12-25 15:31 | disposition home or self-care (01) ==
PROVIDERS: Emergency Provider Physician Assistant; PCP Family Medicine
DX: S82.845A Nondisplaced bimalleolar fracture of left lower leg, initial encounter for closed fracture (principal); W23.0XXA Caught, crushed, jammed, or pinched between moving objects, initial encounter
CPT/HCPCS: 29515; 99283; 73610

== ENCOUNTER 2022-01-01 09:33 | Outpatient (CLI) | payer OTHER, SELFPAY ==
--- NOTE | 2022-01-01 09:15 | DI.RAD_ITS ---
Exam(s) XR ANKLE LT COMPLETE EXAM: XR ANKLE LT COMPLETE CLINICAL HISTORY: f/u left ankle fracture TECHNIQUE: 2D digital imaging was performed. Three views. COMPARISON: CR XR ANKLE LT COMPLETE from 12/25/2021 FINDINGS: Soft tissue swelling is again noted around the malleoli. There has been no change in the alignment o f the fractures at the medial and lateral malleoli. The ankle mortise is not appear widened. The errol int space is well maintained. There is again noted to be spurring at the distal tibia. IMPRESSION: No change in alignment of bimalleolar fracture. DATA REPOSITORY: RADIATION DOSE DELIVERED:
== END 2022-01-01 09:34 | disposition home or self-care (01) ==
LOC: DIORS 09:33
PROVIDERS: PCP Nurse Practitioner Family; Referring Provider Nurse Practitioner Family; Visit Provider Physician Assistant
DX: S82.842D Displaced bimalleolar fracture of left lower leg, subsequent encounter for closed fracture with routine healing (principal); X58.XXXD Exposure to other specified factors, subsequent encounter
CPT/HCPCS: 73610

== ENCOUNTER 2022-01-15 09:59 | Outpatient (CLI) | payer OTHER, SELFPAY ==
--- NOTE | 2022-01-15 09:30 | DI.RAD_ITS ---
Exam(s) XR ANKLE LT COMPLETE EXAM: XR ANKLE LT COMPLETE CLINICAL HISTORY: F/U LEFT ANKLE FRACTURE TECHNIQUE: COMPARISON: CR XR ANKLE LT COMPLETE from 01/01/2022 FINDINGS: Three views were obtained. Previously described bimalleolar fracture again noted, no gross interval change in alignment of the fracture fragments in comparison with examination of January 01. IMPRESSION: RADIATION DOSE DELIVERED: Total DLP
== END 2022-01-15 10:00 | disposition home or self-care (01) ==
LOC: DIORS 09:59
PROVIDERS: PCP Nurse Practitioner Family; Referring Provider Nurse Practitioner Family; Visit Provider Physician Assistant
DX: S82.842D Displaced bimalleolar fracture of left lower leg, subsequent encounter for closed fracture with routine healing (principal); X58.XXXD Exposure to other specified factors, subsequent encounter
CPT/HCPCS: 73610

== ENCOUNTER 2022-01-30 08:21 | Outpatient (CLI) | payer OTHER, SELFPAY ==
--- NOTE | 2022-01-30 08:00 | DI.RAD_ITS ---
Exam(s) XR ANKLE LT COMPLETE EXAM: XR ANKLE LT COMPLETE CLINICAL HISTORY: left ankle f/u TECHNIQUE: 2D digital imaging was performed of the left ankle. Three images were obtained. AP, lat eral and oblique views were obtained. COMPARISON: CR XR ANKLE LT COMPLETE from 01/15/2022 FINDINGS: BONES: There has been no change in alignment of the bimalleolar fracture fragments compared to 022. No new fractures identified. No bony destructive lesion is seen. JOINTS:The ankle mortise is normally aligned. SOFT TISSUE: Normal. IMPRESSION: Stable bibasilar fracture. DATA REPOSITORY: RADIATION DOSE DELIVERED:
== END 2022-01-30 08:22 | disposition home or self-care (01) ==
LOC: DIORS 08:21
PROVIDERS: PCP Nurse Practitioner Family; Referring Provider Nurse Practitioner Family; Visit Provider Student in an Organized Health Care Education/Training Program
DX: S82.842D Displaced bimalleolar fracture of left lower leg, subsequent encounter for closed fracture with routine healing (principal); X58.XXXD Exposure to other specified factors, subsequent encounter
CPT/HCPCS: 73610

== ENCOUNTER 2022-04-03 17:16 | Outpatient (REF) | payer OTHER, SELFPAY | END 2022-04-03 17:17 | disposition home or self-care (01) | LOC: LBN 17:16 | PROVIDERS: PCP Nurse Practitioner Family; Visit Provider Nurse Practitioner Family | DX: J02.9 Acute pharyngitis, unspecified (principal) | CPT/HCPCS: 87077; 87070 ==

== ENCOUNTER 2025-03-17 07:07 | Emergency (ER) | payer SELFPAY ==
[2025-03-17 07:12] VITALS: BP 166/84; PULSE 87; RESP 20; TEMP 36.9; O2SAT 100
--- NOTE | 2025-03-17 07:18 | W.ED.GENAD ---
Discharge Plan Disposition Patient Disposition: Home Discharge Details Clinical Impression: Dysuria, Blood pressure elevated without history of HTN Primary Care Provider: Cynthia Cordon ED Provider: Martin Argueta Home Meds and New Rx's Prescriptions: No Action No Known Home Meds Discharge Instructions Additional Instructions: You were seen in the emergency department for your burning when urinating. Please follow-up with your primary care provider concerning your elevated blood pressure which certainly could have been situational in the emergency department. Your urinalysis was quite reassuring with no signs of urinary tract infection. As we discussed if your symptoms worsen or do not improve please return to the emergency department. HPI General Date/Time Provider Initiated Documentation: 03/17/25 07:18. HPI Narrative: MDM This is an overall quite well-appearing normothermic and not tachycardic 29-year-old male with dysuria for which he will receive urinalysis. Denies new sexual partners and abnormal urethral discharge so my suspicion is low for sexually transmitted infection. As result I did not send a GC nor chlamydia probe as I felt that the risks of false positives outweighed the benefits. No flank pain to suggest ureterallithiasis and no history of nephrolithiasis. No right lower quadrant tenderness nor fevers to suggest appendicitis I do not feel patient requires CT scan. No diarrhea nor left lower quadrant tenderness so my suspicion was low for diverticulitis. No pain out of proportion to suggest necrotizing soft tissue infection. No history of diabetes nor testicular pain to suggest Sheree's gangrene so I do not feel patient requires CT scan. No rash to abdomen to suggest zoster. No fevers to suggest pyelonephritis. Patient is circumcised and low risk for UTI. 8:05 AM Patient's urinalysis is quite reassuring. Nitrate leuk esterase negative with no hematuria nor glucose urea. I met with the patient. I advised him that if his symptoms worsen and did not improve or if he developed fevers or any abnormal urethral discharge that he should return to the emergency department. Otherwise advised PCP follow-up. We did discuss his elevated blood pressure. He reports that he has some anxiety and that his blood pressure increases when he is in physicians offices. I advised him to follow-up with his PCP. HPI This is a male with no significant past medical history presenting with discomfort after urination. He reports experiencing intermittent discomfort following urination, which began on 03/14/2025. The severity of the discomfort varies, with some instances being more intense than others. He does not experience any associated pain in his penis or testicles, and there is no history of trauma. He also reports no fever, hematuria, or abnormal penile discharge. He has been in a monogamous relationship for the past 13 years. He recalls a recent hunting trip where he consumed a significant amount of beer but did not hydrate adequately with water. He is not currently on any medications and reports no other health issues. He is not experiencing any respiratory issues or significant abdominal pain, although he did mention a slight sensation of tightness in his stomach. His appetite and fluid intake are normal, and he has not experienced any episodes of vomiting or diarrhea. His urinary frequency was within his usual range yesterday. He has no known history of kidney stones. Exam General: Well-appearing in no acute distress speaking in complete sentences. Head: Normocephalic, atraumatic. Eye: Extraocular eye movements intact. No conjunctival injection. No scleral icterus. Ear, nose, mouth, throat: Grossly normal inspection. Normal voice, handling secretions normally. Neck: Trachea midline. Cardiovascular: Well-perfused distal extremities. Respiratory: Nonlabored respiration. Gastrointestinal: Nondistended abdomen. Soft. Nontender. No rebound. No guarding. Musculoskeletal: No edema. Moving all 4 extremities spontaneously. Skin: Normal for age and race, grossly normal temperature and turgor. No acute rash. Neurologic: Alert and appropriate, no apparent acute deficits. Psychiatric: Mood and manner are appropriate. Grooming and personal hygiene are appropriate. Related Data Home Medications ?Medication ?Instructions ?Recorded ?Confirmed Unknown [No Known Home Meds] 03/17/25 03/17/25 Allergies Allergy/AdvReac Type Severity Reaction Status Date / Time No Known Allergies Allergy Verified 03/17/25 07:11 General Stated Complaint: Urinary ANGELINA: 3 Course Vital Signs Vital signs: Vital Signs Temperature 36.9 C 03/17/25 07:12 Pulse 87 03/17/25 07:12 Respiratory Rate 20 03/17/25 07:12 Blood Pressure 166/84 H 03/17/25 07:12 Pulse Oximetry 100 03/17/25 07:12 Temperature 36.9 C 03/17/25 07:12 Temperature Source Tympanic 03/17/25 07:12 Pulse 87 03/17/25 07:12 Respiratory Rate 20 03/17/25 07:12 Blood Pressure 166/84 H 03/17/25 07:12 Blood Pressure Position Sitting 03/17/25 07:12 Pulse Oximetry 100 03/17/25 07:12 Oxygen Delivery Method Room Air 03/17/25 07:12 Oxygen Flow Rate 0 03/17/25 07:12 Pain Level 5 03/17/25 07:12 PFSH All Active Problems (Updated 03/17/25 @ 16:41 by Martin Argueta MD) Blood pressure elevated without history of HTN (Acute) Dysuria (Acute) Bites and stings, insect (Acute) Allergic reaction to bee sting (Acute) Medical History No significant past medical history Surgical History No significant past surgical history Social History Smoking/Tobacco Use Status: Current every day Tobacco Type: smokeless tobacco Tobacco: How many years used: 20 Smoking risk assessment performed?: Yes Alcohol Intake: current Alcohol Intake frequency: 0-2 drinks per day Alcohol type: beer Drug use: Never Substance use type: does not use Current gender identity: male Do you feel safe at home: Yes Do you feel safe in your relationship?: Yes
[2025-03-17 07:30] VITALS: BP 166/84; PULSE 87; RESP 20; TEMP 36.9; O2SAT 100
[2025-03-17 07:40] LABS: Glucose Negative (Negative)
[2025-03-17 08:16] VITALS: BP 147/90; PULSE 78; RESP 16; O2SAT 99
== END 2025-03-17 17:29 | disposition home or self-care (01) ==
LOC: ER 08:17
PROVIDERS: Emergency Provider Emergency Medicine; PCP Nurse Practitioner Family
DX: R30.0 Dysuria (principal); R03.0 Elevated blood-pressure reading, without diagnosis of hypertension; F17.290 Nicotine dependence, other tobacco product, uncomplicated
CPT/HCPCS: 87491; 87591; 99283; 81003